=== PATIENT | female | born 1990 | race American Indian/Alaskan Native ===

== ENCOUNTER 2017-04-25 06:34 | Observation (INO) | payer BC ==
[2017-04-25 06:39] VITALS: BMI 39.9
[2017-04-25 06:47] VITALS: TEMP 97.5
[2017-04-25 07:05] LABS: ADD MANUAL DIFF? NO
[2017-04-25 07:09] LABS: EOS # 0.1 (0.0-0.7); EOS % 1.1 % (1.5-5.0); GRAN # 3.39 (1.4-6.5); GRAN % 51.8 % (50.0-68.0); HEMATOCRIT 37.6 % (36.0-48.0); LYMPH # 2.9 (1.2-3.4); LYMPH % 43.9 % (22.0-35.0); MEAN CELL VOLUME 92.8 fL (80.0-105.0); MEAN CORPUSCULAR HEMOGLOBIN 31.1 pg (25.0-35.0); MEAN CORPUSCULAR HGB CONC 33.5 g/dl (31.0-37.0); MEAN PLATELET VOLUME 10.7 fl (7.0-11.0); MONO # 0.2 (0.1-0.6); MONO % 3.2 % (1.0-6.0); PLATELET COUNT 266 10^3/uL (120.0-450.0); RED CELL DISTRIBUTION WIDTH 13.1 % (11.5-14.5); WHITE BLOOD COUNT 6.5 10^3/ul (4.5-11.0)
[2017-04-25] MEDS ORDERED: Morphine 4 mg/ml ISec IVP STA (07:13)
[2017-04-25] MEDS ORDERED: Sodium Chloride 0.9% 1,000 ML IV STA (07:13)
--- NOTE | 2017-04-25 07:24 | ED PDOC ---
Arrival/HPI - General Chief Complaint: Abdominal Pain Time Seen by Provider: 04/25/17 07:03 Historian: Patient - History of Present Illness Narrative History of Present Illness (Text): 04/25/17 07:09 A 26 year old female, whose past medical history includes ulcerative colitis, presents to the emergency department complaining of a subjective fever, chills, daniel-umbilical abdominal pain, generalized body aches, nausea and diarrhea since this morning. Patient reports she woke up around 0400 with the symptoms. Patient denies any vomiting, dysuria, sore throat, runny nose, ear pain, or any other complaints at this time. Patient mentions her last colitis flare up was about a couple of weeks ago and she is seen by a gastroentrologist for it but she cannot recall his name. Patient is currently on her menstrual cycle. Time/Duration: 1-3 hours Symptom Onset: Sudden Symptom Course: Unchanged Quality: Other Activities at Onset: Rest Context: Home Past Medical History - Provider Review Nursing Documentation Reviewed: Yes - Cardiac Hx Cardiac Disorders: No - Pulmonary Hx Respiratory Disorders: No - Neurological Hx Neurological Disorder: No - HEENT Hx HEENT Disorder: No - Renal Hx Renal Disorder: No - Endocrine/Metabolic Hx Endocrine Disorders: No - Hematological/Oncological Hx Blood Disorders: Yes Hx Anemia: Yes - Integumentary Hx Dermatological Disorder: No - Musculoskeletal/Rheumatological Hx Musculoskeletal Disorders: No - Gastrointestinal Hx Gastrointestinal Disorders: Yes Other/Comment: Ulcerative colitis - Genitourinary/Gynecological Hx Genitourinary Disorders: No - Psychiatric Hx Psychophysiologic Disorder: No Hx Substance Use: No Family/Social History - Physician Review Nursing Documentation Reviewed: Yes Family/Social History: Unknown Family HX Smoking Status: Current Some Days Smoker Hx Alcohol Use: Yes Frequency of alcohol use: Socially Hx Substance Use: No Allergies/Home Meds Allergies/Adverse Reactions: Allergies morphine Adverse Reaction (Verified 04/25/17 06:40) RASH Home Medications: Home Meds Medication Instructions Recorded Confirmed No Known Home Med 04/25/17 04/25/17 Review of Systems - Review of Systems Constitutional: Fevers, Other (chills) ENT: absent: Sore Throat Respiratory: absent: SOB, Cough Cardiovascular: absent: Chest Pain Gastrointestinal: Abdominal Pain, Diarrhea, Nausea. absent: Vomiting Genitourinary Female: absent: Dysuria Musculoskeletal: Myalgias. absent: Neck Pain Skin: Rash (bug bites ) Neurological: absent: Headache, Dizziness Endocrine: absent: Polyuria Psychiatric: absent: Depression Physical Exam Vital Signs Reviewed: Yes Vital Signs Temp Pulse Resp BP Pulse Ox 04/25/17 12:19 82 18 111/43 L 100 04/25/17 09:08 66 16 120/70 100 04/25/17 06:46 97.5 F L 88 20 136/63 95 Temperature: Afebrile Blood Pressure: Normal Pulse: Regular Respiratory Rate: Normal Appearance: Positive for: Well-Appearing, Non-Toxic, Comfortable Pain Distress: None Mental Status: Positive for: Alert and Oriented X 3 Finger Stick Blood Glucose: 130 - Systems Exam Head: Present: Atraumatic, Normocephalic Pupils: Present: PERRL Extroacular Muscles: Present: EOMI Conjunctiva: Present: Normal Mouth: Present: Moist Mucous Membranes Neck: Present: Normal Range of Motion Respiratory/Chest: Present: Clear to Auscultation, Good Air Exchange. No: Respiratory Distress, Accessory Muscle Use Cardiovascular: Present: Regular Rate and Rhythm, Normal S1, S2. No: Murmurs Abdomen: Present: Normal Bowel Sounds. No: Tenderness, Distention, Peritoneal Signs, Rebound, Guarding Back: No: CVA Tenderness Upper Extremity: Present: Normal Inspection. No: Cyanosis, Edema Lower Extremity: Present: Normal Inspection. No: Edema Neurological: Present: GCS=15, CN II-XII Intact, Speech Normal Skin: Present: Warm, Dry, Rashes (two distinct rashes to the left arm and left lower back which is consist with a bug bite), Normal Color Psychiatric: Present: Alert, Oriented x 3, Normal Insight, Normal Concentration Medical Decision Making ED Course and Treatment: 04/25/17 07:09 Impression: A 26 year old female with fever, chills, abdominal pain, nausea and diarrhea. Differential Diagnosis include but are not limited to: colitis vs. gastritis Plan: -- Abdomen/Pelvis CT -- Labs -- Urinalysis -- Morphine, Zofran and IV Fluids -- Reassess and disposition 04/25/17 12:03 CBC and CMP grossly normal. UA negative for infection but shows hematuria- consistent wiht menses. CT shows adnexal cyst and instructed to follow-up with [facility]. 04/25/17 12:05 On reevaluation she is tolerating po. She has soft NT/ND abdomen. She was made aware of likely cyst on ovary and was aware to follow-up on dc instructions. - Lab Interpretations Lab Results: 04/25/17 06:40 Lab Results 04/25/17 06:52: POC Glucose (mg/dL) 131 H 04/25/17 06:40: WBC 6.5, RBC 4.05, Hgb 12.6, Hct 37.6, MCV 92.8, MCH 31.1, MCHC 33.5, RDW 13.1, Plt Count 266, MPV 10.7, Gran % 51.8, Lymph % (Auto) 43.9 H, [place] % (Auto) 3.2, Eos % (Auto) 1.1 L, Baso % (Auto) 0.0, Gran # 3.39, Lymph # 2.9, [place] # 0.2, Eos # 0.1, Baso # 0.00 I have reviewed the lab results: Yes - Medication Orders Current Medication Orders: Discontinued Medications Sodium Chloride (Sodium Chloride 0.9%) 1,000 mls @ 999 mls/hr IV .Q1H1M STA Stop: 04/25/17 08:13 Last Admin: 04/25/17 07:34 Dose: 999 mls/hr Iohexol (Omnipaque 240 (50 Ml)) Confirm Administered Dose 50 ml .ROUTE .STK-MED ONE Stop: 04/25/17 07:28 Iohexol (Omnipaque 350 150 Ml) Confirm Administered Dose 150 ml .ROUTE .STK-MED ONE Stop: 04/25/17 10:06 Ketorolac Tromethamine (Toradol) 30 mg IVP STAT STA Stop: 04/25/17 07:37 Last Admin: 04/25/17 07:43 Dose: 30 mg Ondansetron HCl (Zofran Inj) 4 mg IVP STAT STA Stop: 04/25/17 07:14 Last Admin: 04/25/17 07:34 Dose: 4 mg ED OBSERVATION Discharge: Yes Date of observation admission: 04/25/17 Time of observation admission: 07:10 - Observation admission statement Patient is being placed in observation because:: abdominal pain, need for CT scan - Goals of Observation Goals of observation are:: pain management and obtain series of abdominal examination - Progress Note Progress Note: 04/25/17 07:35 On reevaluation, the patient is complaining of pain and is requesting pain medication. Patient is allergic to Morphine will switch to Toradol. 04/25/17 09:08 On reevaluation, the patient is resting comfortable and vital signs remain stable. 04/25/17 10:56 Abdomen/Pelvis CT: Creator : Afsaneh Jose MD COMPARISON: None. FINDINGS: LOWER THORAX: There is bibasilar subsegmental atelectasis. LIVER: The liver is normal in size and there is homogeneous enhancement. A lesion in the right hepatic lobe is too small to characterize by CT criteria. No intrahepatic biliary ductal dilatation. GALLBLADDER AND BILE DUCTS: The gallbladder is normal. No calcified gallstones. PANCREAS: Normal in size. No gross lesion or ductal dilatation. SPLEEN: Normal in size and there is homogeneous enhancement. ADRENALS: Normal in size without discrete nodule. KIDNEYS AND URETERS: Both kidneys are normal in size and there is homogeneous enhancement without hydronephrosis or focal mass. VASCULATURE: Normal. No evidence of aortic aneurysm. BOWEL: The small bowel loops are normal in caliber. There is moderate amount of stool in the ascending colon. Evaluation of the remaining colon is limited in the absence of oral contrast. No evidence of significant bowel wall thickening, dilatation or obstruction. APPENDIX: Normal appendix. PERITONEUM: No free fluid. No free air. LYMPH NODES: No enlarged lymph nodes. BLADDER: Well distended and normal in appearance. REPRODUCTIVE: The uterus is normal in size. An IUD remains in satisfactory position. There is a 4.7 cm low-attenuation mass in the right adnexa. BONES: No acute fracture. Normal for the patient's age. OTHER FINDINGS: None. IMPRESSION: 1. 4.7 cm presumable simple cyst in the right ovary. 2. Otherwise unremarkable CT scan of the abdomen and pelvis. - Scribe Statement The provider has reviewed the documentation as recorded by the Ruiibe Smith Hidalgo Provider Scribe Attestation: All medical record entries made by the Scribe were at my direction and personally dictated by me. I have reviewed the chart and agree that the record accurately reflects my personal performance of the history, physical exam, medical decision making, and the department course for this patient. I have also personally directed, reviewed, and agree with the discharge instructions and disposition. Disposition/Present on Arrival - Present on Arrival Any Indicators Present on Arrival: No History of DVT/PE: No History of Uncontrolled Diabetes: No Urinary Catheter: No History of Decub. Ulcer: No History Surgical Site Infection Following: None - Disposition Have Diagnosis and Disposition been Completed?: Yes Diagnosis: Ovarian cyst, Nausea, Diarrhea Disposition: HOME/ ROUTINE Disposition Time: 12:05 Patient Plan: Discharge Patient Problems: Current Active Problems Problem Status Onset Diarrhea Acute Nausea Acute Ovarian cyst Acute Condition: GOOD
[2017-04-25] MEDS ORDERED: Iohexol 240 (50 ml) ONE (07:27)
[2017-04-25 08:02] LABS: ALB/GLOB RATIO 1.4 (1.1-1.8); ALKALINE PHOSPHATASE 36 U/L (38-133); ALT/SGPT 19 U/L (7-56); AST/SGOT 22 U/L (15-39); BILIRUBIN,TOTAL 0.5 mg/dL (0.2-1.3); BLOOD UREA NITROGEN 21 mg/dL (7-21); CALCIUM 9.4 mg/dL (8.4-10.5); CARBON DIOXIDE 27 mmol/L (21-33); CHLORIDE 103 mmol/L (98-107); GFR AFRICAN-AMERICAN > 60; GLUCOSE,RANDOM 91 mg/dL (70-110); LIPASE 98 U/L (23-300); POTASSIUM 3.6 mmol/L (3.6-5.0); SODIUM 139 mmol/L (132-148); TOTAL PROTEIN 7.3 g/dL (5.8-8.3)
[2017-04-25 09:10] LABS: URINE BILIRUBIN NEGATIVE (NEGATIVE); URINE BLOOD TRACE-INTACT (NEGATIVE); URINE GLUCOSE (UA) NEGATIVE (NEGATIVE); URINE KETONE NEGATIVE (NEGATIVE); URINE LEUKOCYTE ESTERASE NEGATIVE Leu/uL (NEGATIVE); URINE PROTEIN NEGATIVE mg/dL (<30 mg/dL); URINE UROBILINOGEN 0.2 E.U./dL (<1 E.U./dL)
[2017-04-25 09:11] LABS: URINE APPEARANCE CLEAR (CLEAR); URINE COLOR YELLOW (YELLOW)
[2017-04-25 09:12] VITALS: O2SAT 100
[2017-04-25 09:23] LABS: URINE BACTERIA TRACE (NEG); URINE RBC 0 - 2 /hpf (0-2); URINE WBC 0 - 2 /hpf (0-6)
--- NOTE | 2017-04-25 10:56 | CT ---
PROCEDURE: CT Abdomen and Pelvis with contrast HISTORY: Abdominal pain, hx of ulcerative colitiis COMPARISON: None. TECHNIQUE: CT scan of the abdomen and pelvis was performed after intravenous administration of contrast. Oral contrast was administered. Coronal and sagittal reformatted images were obtained. Contrast dose: 150 mL Omnipaque 350 Radiation dose: Total exam DLP = 1104.84 mGy-cm. This CT exam was performed using one or more of the following dose reduction techniques: Automated exposure control, adjustment of the mA and/or kV according to patient size, and/or use of iterative reconstruction technique. FINDINGS: LOWER THORAX: There is bibasilar subsegmental atelectasis. LIVER: The liver is normal in size and there is homogeneous enhancement. A lesion in the right hepatic lobe is too small to characterize by CT criteria. No intrahepatic biliary ductal dilatation. GALLBLADDER AND BILE DUCTS: The gallbladder is normal. No calcified gallstones. PANCREAS: Normal in size. No gross lesion or ductal dilatation. SPLEEN: Normal in size and there is homogeneous enhancement. ADRENALS: Normal in size without discrete nodule. KIDNEYS AND URETERS: Both kidneys are normal in size and there is homogeneous enhancement without hydronephrosis or focal mass. VASCULATURE: Normal. No evidence of aortic aneurysm. BOWEL: The small bowel loops are normal in caliber. There is moderate amount of stool in the ascending colon. Evaluation of the remaining colon is limited in the absence of oral contrast. No evidence of significant bowel wall thickening, dilatation or obstruction. APPENDIX: Normal appendix. PERITONEUM: No free fluid. No free air. LYMPH NODES: No enlarged lymph nodes. BLADDER: Well distended and normal in appearance. REPRODUCTIVE: The uterus is normal in size. An IUD remains in satisfactory position. There is a 4.7 cm low-attenuation mass in the right adnexa. BONES: No acute fracture. Normal for the patient's age. OTHER FINDINGS: None. IMPRESSION: 1. 4.7 cm presumable simple cyst in the right ovary. 2. Otherwise unremarkable CT scan of the abdomen and pelvis.
[2017-04-25 12:27] VITALS: BP 111/43; PULSE 82; RESP 18
== END 2017-04-25 12:05 | disposition home or self-care (01) ==
LOC: ED 06:34 → MERGE 07:10 → EROBSV 07:10
PROVIDERS: ADMIT Emergency Medicine; ATTEND Emergency Medicine
DX: R11.0 Nausea (principal); R19.7 Diarrhea, unspecified; N83.291 Other ovarian cyst, right side
CPT/HCPCS: 74177; 80053; 81001; 82948; 83690; 85025; 96361; 96374; 96375; 99284; G0378; J1885; J2405; J7040; Q9966; Q9967